=== PATIENT | female | born 1995 | race African-American/Black ===

== ENCOUNTER 2018-03-31 19:30 | Emergency (ER) | payer OTHER ==
[2018-03-31 19:43] VITALS: BP 149/91; PULSE 86; TEMP 98.9; BMI 32.5
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
== END 2018-03-31 22:04 | disposition home or self-care (01) ==
LOC: FER 19:30
DX: F10.120 Alcohol abuse with intoxication, uncomplicated (principal); J45.909 Unspecified asthma, uncomplicated
CPT/HCPCS: 99281-25